=== PATIENT | male | born 1990 | race Caucasian/White ===

== ENCOUNTER 2022-03-06 10:06 | Emergency (ER) | payer BC, SELFPAY ==
[2022-03-06 10:11] VITALS: BP 158/95; PULSE 82; RESP 16; TEMP 36.9; O2SAT 100
--- NOTE | 2022-03-06 10:42 | PC.NURSE ---
Pt is cooperative, calm, have SI thoughts but no plan. Said is going through a really nasty divorce, feel very depressed and want to kill himself. Pt is moderate risk, dr Montanez made aware, no sitter need it at this time.
--- NOTE | 2022-03-06 10:46 | PC.NURSE ---
All Pt belonging collected, label placed on and placed at the left corner at the doctors' station due to not enough space at the cabinets.
--- NOTE | 2022-03-06 10:49 | ED.PSYCH ---
HPI - Psych General Chief Complaint: Psychiatric Symptoms Stated Complaint: lexapro side effects Time Seen by Provider: 03/06/22 10:19 Source: patient Mode of arrival: ambulatory Limitations: no limitations History of Present Illness HPI Narrative: This is a 31-year-old male that presents to the emergency department for thoughts of self-harm. Reports he is going through a divorce currently. Reports he was recently started on Lexapro for depression. He does have a longstanding history of depression. Reports he was driving to the airport today to go on a trip for work. Reports he thought about driving into a pole. He does have history of self harm, reports he has attempted overdose on pills. 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 No previous psychiatric hospitalizations. Denies hallucinations or homicidal ideations. Related Data Home Medications Medication Instructions Recorded Confirmed Lexapro 03/06/22 propranolol 03/06/22 Allergies Allergy/AdvReac Type Severity Reaction Status Date / Time No Known Allergies Allergy Verified 03/06/22 10:16 Review of Systems Review of Systems: CONSTITUTIONAL: Denies fever CARDIOVASCULAR: Denies chest pain RESPIRATORY: Denies dyspnea. GASTROINTESTINAL: Denies abdominal pain, vomiting MUSCULOSKELETAL: Denies back pain PSYCHIATRIC: Reports depression. All systems reviewed & are unremarkable except as noted in HPI and below PMFSH Past Medical History Medical History (Updated 03/06/22 @ 14:15 by Sherry Matthews PA-C) History of depression Social History Social History (Updated 03/06/22 @ 10:56 by Sherry Matthews PA-C) Alcohol intake: current Substance use type: methamphetamine Exam Narrative: GENERAL: Well-appearing, well-nourished, and in no acute distress. HEAD: Normocephalic, atraumatic. EYES: EOMI. CHEST: Clear to auscultation. No respiratory distress. No wheezes rales or rhonchi HEART: Regular rate and rhythm. No murmur heard. Normal peripheral pulses. EXTREMITIES: Normal range of motion. No edema. SKIN: Warm, dry, no rash. NEURO: No focal deficits. Alert and oriented x3. PSYCH: Depressed mood and affect Course Course Emergency Course: Patient was medically cleared. Crisis has evaluated patient and he would like to be placed voluntarily Vital Signs Vital signs: Vital Signs Temperature 98.5 F 03/06/22 10:11 Pulse Rate 82 03/06/22 10:11 Respiratory Rate 16 03/06/22 10:11 Blood Pressure 158/95 H 03/06/22 10:11 Pulse Oximetry 100 03/06/22 10:11 Oxygen Delivery Room Air 03/06/22 10:11 Temperature 98.5 F 03/06/22 10:11 Pulse Rate 77 03/06/22 18:58 Respiratory Rate 18 03/06/22 18:58 Blood Pressure 137/92 H 03/06/22 18:58 Pulse Oximetry 99 03/06/22 18:58 Oxygen Delivery Room Air 03/06/22 10:11 MDM - Psych MDM Narrative Medical decision making narrative: Patient presents to the ER for suicidal ideations. Reports long standing history of depression. He was recently started on Lexapro. Reports he had thoughts of driving into a telephone pole today on his way to the airport. He does report history of previous suicide attempts. He has no other complaints. Mildly hypertensive, otherwise his vitals are normal. CBC and metabolic panel without concerning findings. His blood sugar was mildly elevated. His hemoglobin A1c is normal. UA without evidence of infection. Influenza and COVID screens are negative. Urine drug screen is negative. Patient was updated on case findings. Evaluated by crisis. Patient will be voluntarily admitted to psychiatric facility for further management. He has been accepted at [facility]. Will be awaiting transport Lab Data Attestation: I reviewed the patient's lab results. Result diagrams: 03/06/22 10:41 03/06/22 10:41 Labs: Lab Results 03/06/22 03/06/22 03/06/22 Range/Units 10:41 10
[2022-03-06 10:51] LABS: Basophils Absolute Auto 0.1 K/mm3 (0.0-0.1); Basophils Percent Auto 1.1 % (0.2-1.2); Hematocrit 46.1 % (42.0-52.0); Hemoglobin 16.1 g/dL (14.0-18.0); Lymphocytes Absolute Auto 1.42 K/mm3 (0.9-3.2); Lymphocytes Percent Auto 23.1 % (18.3-44.2); Mean Corpuscular HGB Conc 34.9 g/dl (32-36); Mean Corpuscular Volume 94.5 fl (80-100); Mean Platelet Volume 8.4 fl (7.4-10.4); Monocytes Absolute Auto 0.6 K/mm3 (0.1-0.6); Monocytes Percent Auto 10.3 % (2.6-8.5); Neutrophils Percent Auto 65.5 % (45.5-73.1); Platelet Count Result 414 k/mm3 (150-375); Red Blood Count 4.88 M/mm3 (4.6-6.20); White Blood Count 6.1 K/mm3 (4.5-10.0)
[2022-03-06 10:52] LABS: Appearance Urine Clear (Clear); Bilirubin Urine Negative (Negative); Blood Urine Trace-intact (Negative); Color Urine Yellow (Yellow); Glucose Urine UA 2+ mg/dL (Negative); Ketones Urine Negative (Negative); Leukocyte Esterase Ur Negative LEU/UL (Negative); Nitrate Urine Negative (Negative); Protein Urine Negative (Negative); Specific Grav Ur 1.015 (1.001-1.035); Urobilinogen Urine 0.2 mg/dL (<2.0); pH Urine 8.5 (5.0-9.0)
[2022-03-06 11:00] LABS: Mucus Urine Rare /lpf; WBC Urine 0-3 /hpf
[2022-03-06 11:01] LABS: Add Urine Microscopic? YES
[2022-03-06 11:04] LABS: Alanine Aminotransferase 28 U/L (6-50); Alkaline Phosphatase 172 U/L (38-126); Anion Gap 13 mmol/L (8-16); Aspartate Amino Transferase 49 U/L (17-59); Blood Urea Nitrogen 9 mg/dL (9-20); Calcium 9.4 mg/dL (8.4-10.2); Carbon Dioxide 30 mmol/L (22-30); Chloride 91 mmol/L (98-107); Estimated CRCL calculation 121 ml/min; Estimated Glomerular Filt Rate > 60; Ethanol < 10 mg/dL (<10); Glucose 161 mg/dL (65-110); Potassium 4.2 mmol/L (3.4-5.0); Sodium 134 mmol/L (137-145)
[2022-03-06 11:07] LABS: Amphetamine Screen Urine Negative (Negative); Barbiturate Screen Urine Negative (Negative); Benzodiazepines Screen Urine Negative (Negative); Cannabinoid Screen Urine Negative (Negative); Cocaine Screen Urine Negative (Negative); Methadone Screen Urine Negative (Negative); Opiate Screen Urine Negative (Negative); Phencyclidine Screen Urine Negative (Negative)
[2022-03-06 11:46] LABS: Hemoglobin A1C 5.3 % (<5.7)
[2022-03-06 11:51] LABS: Influenza A QL RT-PCR Negative (Negative); Influenza B QL RT-PCR Negative (Negative); SARS-CoV-2 RNA PCR Negative
--- NOTE | 2022-03-06 12:19 | PC.NURSE ---
Pt is medically clear, Crisis is here to eval the pt.
--- NOTE | 2022-03-06 12:42 | PC.NURSE ---
Pt is going to be voluntary admission per Crisis.
--- NOTE | 2022-03-06 12:53 | PC.NURSE ---
All paperwork, including voluntary paper, faxed to [facility], [facility] and [facility]
--- NOTE | 2022-03-06 13:04 | PC.NURSE ---
Pt offered lunch, pt refused, Said is not hungry.
--- NOTE | 2022-03-06 13:14 | PC.NURSE ---
Dominik Marquis Rn called back requesting more information about the pt and wanting to talk to the pt too. Pt currently on the phone with Dominik from [facility].
--- NOTE | 2022-03-06 17:16 | PC.NURSE ---
Pt EDP pt is ok to have his cellphone with him in the room
--- NOTE | 2022-03-06 18:30 | PC.NURSE ---
Pt accepted at [facility], room 5310A, dr Cool. report call to nurse Marleny, transportations called.
[2022-03-06 18:58] VITALS: BP 137/92; PULSE 77; RESP 18; O2SAT 99
== END 2022-03-06 19:00 ==
PROVIDERS: Emergency Provider Physician Assistant
DX: F32.A Depression, unspecified (principal); R45.851 Suicidal ideations; Z20.822 Contact with and (suspected) exposure to COVID-19; R73.9 Hyperglycemia, unspecified; R03.0 Elevated blood-pressure reading, without diagnosis of hypertension; Z79.899 Other long term (current) drug therapy
CPT/HCPCS: 36415; 80053; 80307; 81001; 83036; 84443; 85025; 87636; 99285